=== PATIENT | female | born 1990 | race African-American/Black ===

== ENCOUNTER 2018-06-05 13:42 | Emergency (ER) | payer SELFPAY ==
--- NOTE | 2018-06-05 14:37 | ER Document Report ---
ED ENT - General Chief Complaint: Chest Congestion Stated Complaint: CONGESTION Time Seen by Provider: 06/05/18 14:05 Mode of Arrival: Ambulatory Information source: Patient Notes: 28-year-old female presented to ED with cough cold congestion runny nose sore throat losing her voice. Patient is alert oriented respirations regular and unlabored speaking air muffled voice. States she has been sick for 2 days but no fevers. TRAVEL OUTSIDE OF THE [place] IN LAST 30 DAYS: No - HPI Patient complains to provider of: Nose problem, Throat problem Onset/Duration: Intermittent Quality of pain: Sharp Severity: Moderate Pain Level: 3 Context: Recent Illness Location of pain: Nose, Sinus, Throat Associated symptoms: Congestion, Cough, Runny nose, Sinus drainage, Sore throat Similar symptoms previously: Yes Recently seen / treated by doctor: Yes - Related Data Allergies/Adverse Reactions: No Known Allergies Allergy (Verified 06/05/18 13:42) Past Medical History - General Information source: Patient - Social History Smoking Status: Current Every Day Smoker Cigarette use (# per day): Yes - 3-4 times a day Chew tobacco use (# tins/day): No Smoking Education Provided: Yes - 4 minutes Frequency of alcohol use: Rare - 3-4 months Drug Abuse: None Occupation: [employer] Lives with: Family Family History: Reviewed & Not Pertinent Patient has suicidal ideation: No Patient has homicidal ideation: No - Past Medical History Cardiac Medical History: Reports: None Pulmonary Medical History: Reports: None EENT Medical History: Reports: None Neurological Medical History: Reports: None Endocrine Medical History: Reports: Hx Hyperthyroidism Renal/ Medical History: Reports: None Malignancy Medical History: Reports: None GI Medical History: Reports: None Musculoskeletal Medical History: Reports None Skin Medical History: Reports None Psychiatric Medical History: Reports: None Traumatic Medical History: Reports: None Infectious Medical History: Reports: None Surgical Hx: Negative Past Surgical History: Reports: None - Immunizations Immunizations up to date: Yes Hx Diphtheria, Pertussis, Tetanus Vaccination: Yes Review of Systems - Review of Systems Constitutional: Recent illness EENT: Sinus pressure, Sinus discharge, Throat pain Cardiovascular: No symptoms reported Respiratory: Cough Gastrointestinal: No symptoms reported Genitourinary: No symptoms reported Female Genitourinary: No symptoms reported Musculoskeletal: No symptoms reported Skin: No symptoms reported Hematologic/Lymphatic: No symptoms reported Neurological/Psychological: No symptoms reported -: Yes All other systems reviewed and negative Physical Exam - Vital signs Vitals: Temp Pulse Resp BP Pulse Ox 99.1 F 106 H 18 180/74 H 99 06/05/18 13:45 06/05/18 13:45 06/05/18 13:45 06/05/18 13:45 06/05/18 13:45 Interpretation: Normal - General General appearance: Appears well, Alert - HEENT Head: Normocephalic, Atraumatic Eyes: Normal Pupils: PERRL Ears: Normal External canal: Normal Tympanic membrane: Normal Sinus: Swelling, Tenderness Nasal: Purulent discharge, Swelling Pharynx: Erythema, Post nasal drainage, Tonsillar hypertrophy Neck: Normal - Respiratory Respiratory status: No respiratory distress Chest status: Nontender Breath sounds: Decreased air movement Chest palpation: Normal - Cardiovascular Rhythm: Regular Heart sounds: Normal auscultation Murmur: No - Abdominal Inspection: Normal Distension: No distension Bowel sounds: Normal Tenderness: Nontender Organomegaly: No organomegaly - Back Back: Normal, Nontender - Extremities General upper extremity: Normal inspection, Nontender, Normal color, Normal ROM, Normal temperature General lower extremity: Normal inspection, Nontender, Normal color, Normal ROM, Normal temperature, Normal weight bearing. No: Joel's sign - Neurological Neuro grossly intact: Yes Cognition: Normal Orientation: AAOx4 Eunice Coma Scale Eye Opening: Spontaneous Eunice Coma Scale Verbal: Oriented [place] Coma Scale Motor: Obeys Commands Boston Coma Scale Total: 15 Speech: Normal Motor strength normal: LUE, RUE, LLE, RLE Sensory: Normal - Psychological Associated symptoms: Normal affect, Normal mood - Skin Skin Temperature: Warm Skin Moisture: Dry Skin Color: Normal Course - Re-evaluation Re-evalutation: 06/05/18 21:39 After performing a Medical Screening Examination, I estimate there is LOW risk for ACUTE CORONARY SYNDROME, RESPIRATORY FAILURE, SEPSIS OR MENINGITIS, thus I consider the discharge disposition reasonable. I have reevaluated this patient multiple times and no significant life threatening changes are noted. The patient and I have discussed the diagnosis and risks, and we agree with discharging home with close follow-up. We also discussed returning to the Emergency Department immediately if new or worsening symptoms occur. We have dis cussed the symptoms which are most concerning (e.g., changing or worsening pain, trouble swallowing or breathing, neck stiffness, fever) that necessitate immediate return. - Vital Signs Vital signs: Temp Pulse Resp BP Pulse Ox 98.4 F 93 18 130/77 H 99 06/05/18 15:22 06/05/18 15:22 06/05/18 15:22 06/05/18 15:22 06/05/18 15:22 Discharge - Discharge Clinical Impression: Viral sore throat, Laryngitis URI (upper respiratory infection) Qualifiers: URI type: unspecified viral URI Qualified Code(s): J06.9 - Acute upper respiratory infection, unspecified Condition: Stable Disposition: HOME, SELF-CARE Instructions: Family Physicians / Practices Additional Instructions: Laryngitis You have laryngitis. This is an inflammation of the vocal cords which leads to inability to speak normally. Any irritation to the airway can cause laryngitis. Causes include virus infection, smoke inhalation, allergy, or even trauma due to excessive talking or shouting. Rest your voice. Any vibration of the vocal cords increases and prolongs the swelling. Humidity is helpful, especially cool mist. Avoid dust, chemical fumes, and smoke. Avoid decongestants and antihistamines -- these will make you worse. You can expect to recover completely in a few days. See the physician if new symptoms develop, such as high fever, productive cough, shortness of breath, or if you do not improve within a few days. SORE THROAT: Sore throats may be caused by viruses, bacteria, or fungi. Most are due to a virus, and must get better on their own. Bacterial sore throats, particularly those due to "strep," need treatment with antibiotics. If an antibiotic is prescribed, be sure to take the medication for a full 10 days. Failure to take the antibiotic can result in complications such as rheumatic fever. Sometimes, an injection of antibiotics is given instead of p ills or liquid. This single "shot" is equal in effectiveness to the oral medication. To relieve symptoms, take acetaminophen for pain. Sip clear liquids frequently, or eat popsicles or ice chips. Anesthetic sprays or lozenges may help. Make sure the air in the room is not too dry. Avoid using decongestants or antihistamines. Call the doctor if there is no improvement in two days, or if you have difficulty breathing, increasing throat pain, high fever, rash, or frequent vomiting. UPPER RESPIRATORY ILLNESS: You have a viral infection of the respiratory passages -- a "cold." This common infection causes nasal congestion, drainage, and often sore throat and cough. It is highly contagious. The disease usually lasts about 10 to 14 days. There is no "cure" for the viral infection -- it must run its course. If there is a complication, such as bacterial infection in the nose, sinuses, middle ear, or bronchial tubes, antibiotics may be required. The antibiotics won't affect the virus. Drink plenty of fluids. A humidifier may help. An expectorant medication or decongestant may make you more comfortable. Use acetaminophen or ibuprofen for fever or aches. See the doctor if fever persists over two days, if there is any significant worsening of your symptoms, or if you simply fail to improve as expected. DECONGESTANT MEDICATION: A decongestant medicine has been prescribed. Often this medicine is combined in the same tablet with an antihistamine or expectorant. This type of medicine is helpful in treating a bad cold or sinus condition, as well as in treatment of the nasal congestion of hay fever. It is not of much benefit for lung infections. Decongestant medicines are related to stimulants. They can cause an increase in blood pressure and heart rate. Persons with heart disease and high blood pressure should not take decongestants without discussing this with the physician. If you develop palpitations, chest pain, headache, or tremors, stop the medicine and consult your physician. COUGH-SUPPRESSANT & EXPECTORANT MEDICATION: You are to use a cough medication as needed for relief of symptoms. This medicine is a combination of an expectorant (to make the mucous thinner and more easily "coughed up") and a cough suppressant (to reduce the frequency of coughing). The cough-suppressant medicine is related to narcotics. You may experience mild nausea and sleepiness. Some patients who are very sensitive to narcotics may have stomach pain from this medicine. Taking the medicine with food reduces these side effects. Do not drive or work with machinery until you know how this medicine affects you. The expectorant should have no side effects. Iodine-containing expectorants (such as organidin) should not be taken by persons with active thyroid disease unless approved by your doctor. Call the doctor if you develop shortness of breath, hives, rash, itching, lightheadedness, or severe nausea and vomiting. USE OF ACETAMINOPHEN (Tylenol): Acetaminophen may be taken for pain relief or fever control. It's much safer than aspirin, offering a wider range of "safe" dosages. It is safe during . Some brand names are Tylenol, Panadol, Datril, Anacin 3, Tempra, and Liquiprin. Acetaminophen can be repeated every four hours. The following are maximum recommended dosages: >89 pounds or adults 650 mg to 900 mg Acetaminophen can be repeated every four hours. Maximum dose not to exceed 4000 mg a day. SMOKING: If you smoke, you should stop smoking. The tar and chemicals in cigarette smoke are harmful. Smoking has been shown to cause: emphysema chronic bronchitis lung cancer mouth and throat cancer stomach and pancreas cancer premature aging defects In addition, smoking increases ear and lung infections in children of smokers. FOLLOW-UP CARE: If you have been referred to a physician for follow-up care, call the physicians office for an appointment as you were instructed or within the next two days. If you experience worsening or a significant change in your symptoms, notify the physician immediately or return to the Emergency Department at any time for re-evaluation. Forms: Elevated Blood Pressure, Smoking Cessation Education, Return to Work
[2018-06-05] MEDS ORDERED: IBUPROFEN 600 MG TABLET PO ONE (15:22)
[2018-06-05] MEDS ORDERED: LORATADINE 10 MG TABLET PO ONE (15:22)
[2018-06-05 15:24] VITALS: BP 130/77
== END 2018-06-05 15:28 | disposition home or self-care (01) ==
LOC: ER 13:42
DX: J02.8 Acute pharyngitis due to other specified organisms (principal); B97.89 Other viral agents as the cause of diseases classified elsewhere; J04.0 Acute laryngitis; R05 Cough; J35.1 Hypertrophy of tonsils; R09.82 Postnasal drip; R09.89 Other specified symptoms and signs involving the circulatory and respiratory systems; J34.89 Other specified disorders of nose and nasal sinuses; F17.210 Nicotine dependence, cigarettes, uncomplicated; Z71.6 Tobacco abuse counseling
CPT/HCPCS: 87070; 87077; 87880; 99283

== ENCOUNTER 2018-06-17 16:57 | Emergency (ER) | payer SELFPAY ==
[2018-06-17] MEDS ORDERED: IPRATROPIUM/ALBUTEROL 0.5-2.5 MG/3 ML AMPUL NEB ONE (19:48)
--- NOTE | 2018-06-17 20:33 | ER Document Report ---
HPI - HPI Time Seen by Provider: 06/17/18 18:55 Pain Level: 5 Notes: Patient is a 28-year-old female who presents the emergency department chief complaint of fever, congestion, body aches and cough that is been ongoing for 2 weeks. Patient reports she is taking [id number] medications with no help. Patient reports she was seen here and discharged with a diagnosis of a viral upper respiratory illness. Patient reports she continues to have worsening symptoms, states that earlier today she had a fever of 101. Patient also reports history of hyperthyroidism, states she has been out of her medications for approximately 1 month. - EENT EENT: REPORTS: Sore Throat - RESPIRATORY Respiratory: REPORTS: Coughing - REPRODUCTIVE Reproductive: DENIES: : Past Medical History - General Information source: Patient - Social History Smoking Status: Never Smoker Frequency of alcohol use: None Drug Abuse: None Family History: Reviewed & Not Pertinent Patient has suicidal ideation: No Patient has homicidal ideation: No - Past Medical History Cardiac Medical History: Reports: Hx Hypertension Endocrine Medical History: Reports: Hx Hyperthyroidism Renal/ Medical History: Denies: Hx Peritoneal Dialysis Surgical Hx: Negative - Immunizations Immunizations up to date: Yes Hx Diphtheria, Pertussis, Tetanus Vaccination: Yes Vertical Provider Document - CONSTITUTIONAL Notes: PHYSICAL EXAMINATION: GENERAL: Well-nourished and in no acute distress. HEAD: Atraumatic, normocephalic. EYES: Pupils equal round and reactive to light, extraocular movements intact, conjunctiva are normal. ENT: Nares patent, oropharynx clear without exudates. Moist mucous membranes. NECK: Normal range of motion, supple without lymphadenopathy LUNGS: Breath sounds clear to auscultation bilaterally and equal. Mild expiratory wheezes noted bilaterally HEART: Regular rate and rhythm without murmurs ABDOMEN: Soft, nontender, nondistended abdomen. No guarding, no rebound. No masses appreciated. Female : No CVA tenderness. Musculoskeletal: Normal range of motion, no pitting or edema. No cyanosis. NEUROLOGICAL: Cranial nerves grossly intact. Normal speech, normal gait. Normal sensory, motor exams PSYCH: Normal mood, normal affect. SKIN: Warm, Dry, normal turgor, no rashes or lesions noted. - INFECTION CONTROL TRAVEL OUTSIDE OF THE [place] IN LAST 30 DAYS: No Course - Re-evaluation Re-evalutation: 06/17/18 21:24 Rapid strep and influenza are both negative. Chest x-ray was obtained and is also negative for any acute findings to include infiltrates. Patient has been sick for greater than 2 weeks with symptoms of bronchitis. Patient will be started on penicillin and prednisone. Patient's hyperthyroid medications also refilled as patient does not have a primary care doctor and just moved here. Patient encouraged to get a primary care provider, a list was provided to her. Patient's vital signs were stable at time of discharge. Of note patient was initially tachycardic. Patient reports that her heart rate always runs high due to her hyperthyroidism. Patient reports her baseline heart rate is usually 110. - Vital Signs Vital signs: Temp Pulse Resp BP Pulse Ox 99.9 F 105 H 18 153/97 H 97 06/17/18 19:46 06/17/18 19:46 06/17/18 19:46 06/17/18 17:15 06/17/18 19:46 Discharge - Discharge Clinical Impression: Bronchitis Condition: Stable Disposition: HOME, SELF-CARE Additional Instructions: BRONCHITIS WITH BRONCHOSPASM (WHEEZING): You have bronchitis with bronchospasm (wheezing). Sometimes people develop wheezing with a chest cold. This occurs either because of an underlying tendency toward asthma or because the virus itself irritates the bronchial tubes. This irritation causes cough, shortness of breath, and wheezing. Emergency treatment of bronchospasm may include adrenaline shots or bronchodilator aerosol. You may feel lightheaded and have a rapid pulse for an hour or two. Rest and get plenty of fluids. At home, we'll treat you with a bronchodilator inhaler. Corticosteroids may be required for some patients. Until you recover, avoid chemical fumes, dusts, pollens, and exercising in very cold or dry air. If you smoke, stop now! Most cases of bronchitis get better without antibiotics. We prescribe antibiotics when we believe bacteria are damaging your airways, or if there's high risk the bronchitis will worsen into pneumonia. Increase your fluid intake. A cool mist humidifier may make your lungs more comfortable. An expectorant (cough medicine that loosens phlegm) can help. Repeated episodes of bronchitis and bronchospasm may result in lung damage -- for example, chronic bronchitis, recurrent pneumonias, or emphysema. If you develop a fever, increased wheezing, chest pain, or severe shortness of breath, you should contact the doctor immediately. INHALED BRONCHODILATORS: You have received a treatment of and/or prescription for an inhaled bronchodilator -- a medication which stimulates the airways in the lung to dilate. This improves the flow of air in asthma, bronchitis, and emphysema. These medicines have some similarity to adrenaline, and can cause similar side effects: shakiness, racing heart, and a sense of nervousness. These side effects decrease with time. Contact your doctor if these side effects are severe. Do not over-use the medicine. Too-frequent use of the inhaler may make it ineffective. Call your doctor if the inhaler is not controlling your symptoms at the prescribed doses. STEROID MEDICATION: You have been given an injection of or oral medicine of the cortisone/steroid class. This medication is used to control inflammation or allergy. Wally t is usually only given for a short period of time, until the acute process subsides. There are usually no side effects from short-term use of cortisone-like medications. Some persons feel an increased sense of well-being and are not sleepy at bedtime. Long-term use of cortisone medications is best avoided, unless required for a severe condition. If your condition does not remit, or relapses after the course of corticosteroid medication, you should consult your physician. ANTIBIOTIC THERAPY: You have been given an antibiotic prescription. It's important that you take all the medication, unless instructed otherwise by your physician. Failure to complete the entire course can result in relapse of your condition. Common side effects of antibiotics include nausea, intestinal cramping, or diarrhea. Women may develop vaginal yeast infections, and babies can get yeast (thrush) in the mouth following the use of antibiotics. Contact your physician if you develop significant side effects from this medication. Allergy to this antibiotic can result in hives, wheezing, faintness, or itching. If symptoms of allergy occur, stop the medication and call your doctor. AMOXICILLIN: Amoxicillin is a member of the penicillin family. It covers the germs likely to cause ear, bronchial, and urinary infections better than plain penicillin. Amoxicillin can be taken without regard to meals. Nausea after taking the medication is rare, but can occur. Diarrhea can occur, particularly in small children. Vaginal yeast infections and oral thrush in infants are also common. Contact your physician if these problems occur. Allergy to penicillins is common. If you have had an allergic reaction to any drug of the penicillin family, you should never take any other penicillin. Notify your doctor at once if you develop hives, itching, swelling, faintness, or shortness of breath. Less serious side effects can include nausea or diarrhea. USE OF ACETAMINOPHEN (Tylenol): Acetaminophen may be taken for pain relief or fever control. It's much safer than aspirin, offering a wider range of "safe" dosages. It is safe during . Some brand names are Tylenol, Panadol, Datril, Anacin 3, Tempra, and Liquiprin. Acetaminophen can be repeated every four hours. The following are maximum recommended dosages: >89 pounds or adults 650 mg to 900 mg Acetaminophen can be repeated every four hours. Maximum dose not to exceed 4000 mg a day. SMOKING: If you smoke, you should stop smoking. The tar and chemicals in cigarette smoke are harmful. Smoking has been shown to cause: emphysema chronic bronchitis lung cancer mouth and throat cancer stomach and pancreas cancer premature aging defects In addition, smoking increases ear and lung infections in children of smokers. FOLLOW-UP CARE: If you have been referred to a physician for follow-up care, call the physicians office for an appointment as you were instructed or within the next two days. If you experience worsening or a significant change in your symptoms, notify the physician immediately or return to the Emergency Department at any time for re-evaluation. The rapid strep test, influenza testing and chest x-ray were all normal today. Please take medications as prescribed. Use the albuterol inhaler, you may use 2 puffs every 4 hours as needed for any shortness of breath or wheezing. Take all other medications as prescribed. Push fluids. Take Tylenol or ibuprofen for any fever or body aches. You were given a first dose of all medications tonight so that you do not have to go to the pharmacy tonight. Please follow-up with your primary care provider, a list has been provided to you. Prescriptions: Amoxicillin 1 tab PO TID #21 tab Atenolol [Tenormin] 25 mg PO BID 30 Days #60 tablet Methimazole 10 mg PO TID 30 Days #90 tablet Prednisone [Deltasone 20 mg Tablet] 3 tab PO DAILY 5 Days #15 tablet Forms: Return to Work Referrals: SANDIE ROTH MD [Primary Care Provider] - Follow up as needed JANET DIAZ MD [ACTIVE STAFF] - Follow up as needed KEARA ALLEN MD [COMMUNITY BASED STAFF] - Follow up as needed
[2018-06-17 20:40] LABS: A TYPE INFLUENZA AG NEGATIVE (NEGATIVE); B INFLUENZA AG NEGATIVE (NEGATIVE)
--- NOTE | 2018-06-17 20:59 | RADIOLOGY REPORT (SQ) ---
XR CHEST 2 VIEWS HISTORY: Cough and fever. COMPARISON: None. FINDINGS: The heart size is normal. No consolidation, pleural effusion, or pneumothorax is seen. There are no acute bony findings. IMPRESSION: No evidence of acute cardiopulmonary disease.
[2018-06-17] MEDS ORDERED: ALBUTEROL SULFATE HFA (90 MCG/PUFF) 8 GM MDI (1 MDI/ER DISP) IH ONE (21:06)
[2018-06-17] MEDS ORDERED: PREDNISONE 20 MG TABLET PO ONE (21:06)
[2018-06-17] MEDS ORDERED: AMOXICILLIN TRIHYDRATE 500 MG CAPSULE PO ONE ×2 (21:09→21:24)
[2018-06-17] MEDS ORDERED: IBUPROFEN 600 MG TABLET PO ONE (21:20)
[2018-06-17] MEDS ORDERED: ACETAMINOPHEN 325 MG TABLET PO ONE (21:21)
[2018-06-17] MEDS ORDERED: PENICILLIN V POTASSIUM 500 MG TABLET PO ONE (21:23)
[2018-06-17 21:32] VITALS: BP 139/87
== END 2018-06-17 21:30 | disposition home or self-care (01) ==
LOC: ER 16:57
DX: J40 Bronchitis, not specified as acute or chronic (principal); R50.9 Fever, unspecified; R09.81 Nasal congestion; M79.10 Myalgia, unspecified site; R05 Cough; I10 Essential (primary) hypertension
CPT/HCPCS: 99283; 87070; 87880; 87077; 87804; 71046; J7512; J3490; J7620

== ENCOUNTER 2018-10-26 20:24 | Emergency (ER) | payer MEDICAID ==
[2018-10-26] MEDS ORDERED: ACETAMINOPHEN 325 MG TABLET PO ONE (20:46)
--- NOTE | 2018-10-26 21:51 | RADIOLOGY REPORT (SQ) ---
EXAM DESCRIPTION: XR CHEST 2 VIEWS COMPLETED DATE/TME: 10/26/2018 20:46 CLINICAL HISTORY: 28 years Female cough COMPARISON: 06/17/2018. FINDINGS: The cardiomediastinal silhouette appears unremarkable. No consolidating infiltrates or pleural effusions. No pneumothorax. IMPRESSION: No acute abnormality is identified.
[2018-10-26] MEDS ORDERED: NORMAL SALINE 1000 ML 1,000 ML IV ONE (22:11)
[2018-10-26] MEDS ORDERED: KETOROLAC TROMETHAMINE INJ/PF 30 MG/1 ML SDV IV ONE (22:11)
--- NOTE | 2018-10-26 22:12 | ER Document Report ---
Addendum entered and electronically signed by SADNOR THORNE NP 10/28/18 17:49: Course - Re-evaluation Re-evalutation: 10/28/18 17:49 [facility] pharmacy called to confirm dosage instructions for the a azithromycin prescription. Pharmacy advised that patient can take 1 tab daily x4 days. - Vital Signs Vital signs: Temp Pulse Resp BP Pulse Ox 98.7 F 114 H 18 156/83 H 100 10/27/18 00:05 10/27/18 00:05 10/27/18 00:05 10/27/18 00:05 10/27/18 00:05 - Laboratory Result Diagrams: 10/26/18 22:37 10/26/18 22:37 Laboratory results interpreted by me: 10/26/18 10/26/18 22:37 22:37 Hgb 11.7 L Hct 35.2 L MCV 79 L MCH 26.3 L RDW 14.9 H Creatinine 0.51 L Glucose 111 H Original Note: ED General - General Chief Complaint: Cough Stated Complaint: CONGESTION Time Seen by Provider: 10/26/18 21:55 Notes: Patient is a 28-year-old female that comes emergency department for chief complaint of cough, coughing up greenish sputum for the past 3 days, today she developed fevers, she also has a sore throat. She coughed until she vomited earlier today. She does smoke. She denies any daily medications, she is diagnosed with hyperthyroidism but does not take the prescriptions for it. LMP within the past 3 days. Denies any obvious sick contacts or past medical histor y otherwise. TRAVEL OUTSIDE OF THE [place] IN LAST 30 DAYS: No - Related Data Allergies/Adverse Reactions: No Known Allergies Allergy (Verified 10/26/18 20:28) Past Medical History - General Information source: Patient - Social History Smoking Status: Never Smoker Frequency of alcohol use: None Drug Abuse: None Lives with: Family Family History: Reviewed & Not Pertinent Patient has suicidal ideation: No Patient has homicidal ideation: No - Past Medical History Cardiac Medical History: Reports: Hx Hypertension Endocrine Medical History: Reports: Hx Hyperthyroidism Renal/ Medical History: Denies: Hx Peritoneal Dialysis - Immunizations Immunizations up to date: Yes Hx Diphtheria, Pertussis, Tetanus Vaccination: Yes Review of Systems - Review of Systems Constitutional: See HPI EENT: See HPI Cardiovascular: No symptoms reported Respiratory: See HPI Gastrointestinal: No symptoms reported Genitourinary: No symptoms reported Female Genitourinary: No symptoms reported Musculoskeletal: No symptoms reported Skin: No symptoms reported Hematologic/Lymphatic: No symptoms reported Neurological/Psychological: No symptoms reported Physical Exam - Vital signs Vitals: Temp Pulse Resp BP Pulse Ox 100.0 F 127 H 16 159/89 H 98 10/26/18 20:34 10/26/18 20:34 10/26/18 20:34 10/26/18 20:34 10/26/18 20:34 - Notes Notes: GENERAL: Alert, interacts well. No acute distress. HEAD: Normocephalic, atraumatic. EYES: Pupils equal, round, and reactive to light. Extraocular movements intact. ENT: Oral mucosa moist, tongue midline. Oropharynx with erythema and tonsillar swelling but no exudates, normal uvula, airway patent. Nares patent, no nasal septal hematoma, TM's intact. NECK: Full range of motion. Supple. Trachea midline. Bilateral mild lymphadenopathy anteriorly. LUNGS: Clear to auscultation bilaterally, no wheezes, rales, or rhonchi. Occasional congested cough. HEART: Borderline tachycardia, normal rhythm. No murmur ABDOMEN: Soft, non-tender. Non-distended. Bowel sounds present in all 4 quadrants. GENITOURINARY: Deferred EXTREMITIES: Moves all 4 extremities spontaneously. No edema, normal radial and dorsalis pedis pulses bilaterally. No cyanosis. BACK: no cervical, thoracic, lumbar midline tenderness. No saddle anesthesia, normal distal neurovascular exam. Moves all extremities in full range of motion. NEUROLOGICAL: Alert and oriented x3. Normal speech. Cranial nerves II through XII grossly intact. PSYCH: Normal affect, normal mood. SKIN: Warm, dry, normal turgor. No rashes or lesions noted. Course - Re-evaluation Re-evalutation: On examination patient has erythema of the tonsils with tonsillitis and anterior cervical adenopathy. Strep is negative. Patient also has frequent cough, reported to be productive with green sputum, she is also running fevers today after several days of symptoms. Concern for underlying developing pneumonia. Chest x-rays are unremarkable however, CBC and chemistry are nonspecific. Discussed with patient. Discussed different options. We treated her with dexamethasone for her tonsillitis and lymphadenopathy, she was provided with azithromycin because of worsening symptoms with development of fever and still the possibility of an underlying pneumonia. Patient is still tachycardic on reevaluation. However patient admits to me that this is actually a normal heart rate for her and she is supposed to be on medications for hyperthyroidism but she does not like taking these. I did recommend that she resume her prescribed medications. I discussed follow-up and return precautions in detail. Patient states understanding and agreement. Stable time of discharge. - Vital Signs Vital signs: Temp Pulse Resp BP Pulse Ox 98.7 F 114 H 18 156/83 H 100 10/27/18 00:05 10/27/18 00:05 10/27/18 00:05 10/27/18 00:05 10/27/18 00:05 - Laboratory Result Diagrams: 10/26/18 22:37 10/26/18 22:37 Laboratory results interpreted by me: 10/26/18 10/26/18 22:37 22:37 Hgb 11.7 L Hct 35.2 L MCV 79 L MCH 26.3 L RDW 14.9 H Creatinine 0.51 L Glucose 111 H Discharge - Discharge Clinical Impression: Productive cough Fever Qualifiers: Fever type: unspecified Qualified Code(s): R50.9 - Fever, unspecified Pharyngitis Qualifiers: Pharyngitis/tonsillitis etiology: unspecified etiology Qualified Code(s): J02.9 - Acute pharyngitis, unspecified Condition: Stable Disposition: HOME, SELF-CARE Additional Instructions: Your work-up does not show any concerning findings (chest x-ray is clear, strep is negative, labs do not show concerning findings). Your symptoms and examination are most consistent with a viral upper respiratory tract, however because of your developing cough and fevers I am concerned there is an underlying early pneumonia. We are covering you for this. You have been treated with Decadron to help with your throat swelling and general symptoms. Take ibuprofen or Tylenol, drink plenty fluids, rest, complete the antibiotic. Follow-up primary care. Return if you worsen including difficulty breathing, spiking fevers, or any other concerning or worsening symptoms. Prescriptions: Benzonatate [Tessalon Perle 100 mg Capsule] 100 mg PO Q8HP PRN #20 cap PRN Reason: Azithromycin [Zithromax 250 mg Tablet] 250 mg PO ASDIR PRN #4 tablet PRN Reason: Forms: Return to Work
[2018-10-26 22:49] LABS: ABSOLUTE BASOPHILS # (AUTO) 0.1 10^3/uL (0.0-0.2); ABSOLUTE EOSINOPHILS # (AUTO) 0.1 10^3/uL (0.0-0.6); ABSOLUTE LYMPHOCYTES (AUTO) 1.4 10^3/uL (0.5-4.7); ABSOLUTE MONOCYTES (AUTO) 0.4 10^3/uL (0.1-1.4); ABSOLUTE NEUT (AUTO) 4.2 10^3/uL (1.7-8.2); BASOPHILS % (AUTO) 0.8 % (0-2); EOSINOPHILS % (AUTO) 2.2 % (0-6); HEMATOCRIT 35.2 % (36.0-47.0); HEMOGLOBIN 11.7 g/dL (12.0-15.5); LYMPHOCYTES % (AUTO) 22.4 % (13-45); MEAN CORPUSCULAR HEMOGLOBIN 26.3 pg (27.0-33.4); MEAN CORPUSCULAR HGB CONC 33.2 g/dL (32.0-36.0); MEAN CORPUSCULAR VOLUME 79 fl (80-97); MONOCYTES % (AUTO) 6.5 % (3-13); PLATELET COUNT 197 10^3/uL (150-450); RED BLOOD COUNT 4.43 10^6/uL (3.72-5.28); RED CELL DISTRIBUTION WIDTH 14.9 % (11.5-14.0); SEGMENTED NEUTROPHILS % (AUTO) 68.1 % (42-78); TOTAL CELLS COUNTED % (AUTO) 100 %; WHITE BLOOD COUNT 6.2 10^3/uL (4.0-10.5)
[2018-10-26 23:24] LABS: ALBUMIN 4.1 g/dL (3.5-5.0); ALKALINE PHOSPHATASE 95 U/L (38-126); ANION GAP 7 (5-19); ASPARTATE AMINO TRANSFERASE 21 U/L (14-36); BILIRUBIN,DIRECT 0.2 mg/dL (0.0-0.4); BILIRUBIN,TOTAL 0.3 mg/dL (0.2-1.3); BLOOD UREA NITROGEN 8 mg/dL (7-20); CALCIUM 9.1 mg/dL (8.4-10.2); CARBON DIOXIDE 25 mmol/L (22-30); CHLORIDE 105 mmol/L (98-107); GLUCOSE 111 mg/dL (75-110); POTASSIUM 4.2 mmol/L (3.6-5.0); TOTAL PROTEIN 8.1 g/dL (6.3-8.2)
[2018-10-26] MEDS ORDERED: DEXAMETHASONE SOD PHOS INJ 10 MG/1 ML VIAL IV ONE (23:52)
[2018-10-26] MEDS ORDERED: AZITHROMYCIN 250 MG TABLET PO ONE (23:52)
[2018-10-27 00:11] VITALS: BP 156/83
--- NOTE | 2018-10-27 07:34 | EKG REPORT ---
SEVERITY:- OTHERWISE NORMAL ECG - SINUS TACHYCARDIA : Confirmed by: Andi Blanco MD 27-Oct-2018 07:34:19
== END 2018-10-27 00:19 | disposition home or self-care (01) ==
LOC: ER 20:24
DX: J03.90 Acute tonsillitis, unspecified (principal); R05 Cough; R50.9 Fever, unspecified; I10 Essential (primary) hypertension; R59.0 Localized enlarged lymph nodes; R00.0 Tachycardia, unspecified; E05.90 Thyrotoxicosis, unspecified without thyrotoxic crisis or storm; T50.906A Underdosing of unspecified drugs, medicaments and biological substances, initial encounter; Z91.128 Patient's intentional underdosing of medication regimen for other reason; Z91.14 Patient's other noncompliance with medication regimen
CPT/HCPCS: 93005; 99284; 96361; 96374; 36415; 87070; 87880; 84703; 85025; 87077; 80053; 71046; 93010; J3490; Q0144; J7030; J1100

== ENCOUNTER 2019-02-15 18:05 | Emergency (ER) | payer SELFPAY ==
--- NOTE | 2019-02-15 18:23 | ER Document Report ---
ED Medical Screen (RME) - General Chief Complaint: Chest Pain Stated Complaint: CHEST PAIN Time Seen by Provider: 02/15/19 18:16 Mode of Arrival: Ambulatory Information source: Patient Notes: 28-year-old female presented to ED for complaint of substernal mid chest pain for the last 3 days. She states she has had cough cold congestion shortness of breath for the last 3 days. Patient has a history of hyperthyroid and her blood pressure. She states she smokes about 3 cigarettes a day. She states she does not have a primary care doctor and nobody is following up on her thyroid medicine. She states she did get a prescription from the emergency room. This menstrual period was about a month ago. Lungs are clear to auscultation pulse is very tachycardic. I have greeted and performed a rapid initial assessment of this patient. A comprehensive ED assessment and evaluation of the patient, analysis of test results and completion of medical decision making process will be conducted by an additional ED providers. TRAVEL OUTSIDE OF THE [place] IN LAST 30 DAYS: No - Related Data Allergies/Adverse Reactions: No Known Allergies Allergy (Verified 10/26/18 20:28) Past Medical History - Past Medical History Cardiac Medical History: Reports: Hx Hypertension Endocrine Medical History: Reports: Hx Hyperthyroidism Renal/ Medical History: Denies: Hx Peritoneal Dialysis - Immunizations Immunizations up to date: Yes Hx Diphtheria, Pertussis, Tetanus Vaccination: Yes
[2019-02-15] MEDS ORDERED: ACETAMINOPHEN 325 MG TABLET PO ONE (18:25)
[2019-02-15] MEDS ORDERED: ASPIRIN 81 MG TABLET, CHEWABLE PO ONE (18:25)
[2019-02-15] MEDS ORDERED: NORMAL SALINE 1000 ML 1,000 ML IV ONE (18:26)
--- NOTE | 2019-02-15 18:26 | EKG REPORT ---
SEVERITY:- BORDERLINE ECG - SINUS TACHYCARDIA BORDERLINE Q WAVES IN INFERIOR LEADS INFERIOR Q WAVES, PROBABLY NORMAL VARIATION : Confirmed by: Veronica Hendricks 15-Feb-2019 18:26:11
--- NOTE | 2019-02-15 18:59 | RADIOLOGY REPORT (SQ) ---
EXAM DESCRIPTION: CHEST 2 VIEWS COMPLETED DATE/TIME: 02/15/2019 6:35 pm REASON FOR STUDY: chest pain cough COMPARISON: 10/26/2018 EXAM PARAMETERS: NUMBER OF VIEWS: two views TECHNIQUE: Digital Frontal and Lateral radiographic views of the chest acquired. RADIATION DOSE: NA LIMITATIONS: none FINDINGS: LUNGS AND PLEURA: No opacities, masses or pneumothorax. No pleural effusion. MEDIASTINUM AND HILAR STRUCTURES: No masses or contour abnormalities. HEART AND VASCULAR STRUCTURES: Heart normal size. No evidence for failure. BONES: No acute findings. HARDWARE: None in the chest. OTHER: No other significant finding. IMPRESSION: NO ACUTE RADIOGRAPHIC FINDING IN THE CHEST. TECHNICAL DOCUMENTATION: JOB ID: [id number] [employer]- All Rights Reserved Reading location - IP/workstation name: [email or web address]
[2019-02-15 19:18] LABS: ABSOLUTE EOSINOPHILS # (AUTO) 0.3 10^3/uL (0.0-0.6); ABSOLUTE LYMPHOCYTES (AUTO) 2.3 10^3/uL (0.5-4.7); ABSOLUTE MONOCYTES (AUTO) 0.5 10^3/uL (0.1-1.4); BASOPHILS % (AUTO) 0.7 % (0-2); EOSINOPHILS % (AUTO) 3.6 % (0-6); HEMOGLOBIN 12.6 g/dL (12.0-15.5); LYMPHOCYTES % (AUTO) 32.2 % (13-45); MEAN CORPUSCULAR HEMOGLOBIN 26.1 pg (27.0-33.4); MEAN CORPUSCULAR VOLUME 79 fl (80-97); MONOCYTES % (AUTO) 6.5 % (3-13); PLATELET COUNT 201 10^3/uL (150-450); RED BLOOD COUNT 4.82 10^6/uL (3.72-5.28); RED CELL DISTRIBUTION WIDTH 14.9 % (11.5-14.0); TOTAL CELLS COUNTED % (AUTO) 100 %; WHITE BLOOD COUNT 7.1 10^3/uL (4.0-10.5)
[2019-02-15 19:38] LABS: ALBUMIN 3.9 g/dL (3.5-5.0); ALKALINE PHOSPHATASE 106 U/L (38-126); ANION GAP 8 (5-19); ASPARTATE AMINO TRANSFERASE 19 U/L (14-36); BILIRUBIN,DIRECT 0.1 mg/dL (0.0-0.4); BILIRUBIN,TOTAL 0.2 mg/dL (0.2-1.3); BLOOD UREA NITROGEN 7 mg/dL (7-20); CALCIUM 9.4 mg/dL (8.4-10.2); CARBON DIOXIDE 24 mmol/L (22-30); CHLORIDE 107 mmol/L (98-107); GLUCOSE 123 mg/dL (75-110)
[2019-02-15 19:55] LABS: FREE T3 10.5 pg/mL (2.77-5.27); FREE T4 (FREE THYROXINE) 3.35 ng/dL (0.78-2.19)
[2019-02-15 20:09] LABS: THYROID STIMULATING HORMONE 0.02 uIU/mL (0.47-4.68)
[2019-02-15 20:46] LABS: APPEARANCE,URINE SLIGHTLY-CLOUDY; BILIRUBIN,URINE NEGATIVE (NEGATIVE); COLOR,URINE YELLOW; GLUCOSE, URINE NEGATIVE (NEGATIVE); KETONES,URINE NEGATIVE (NEGATIVE); PROTEIN,URINE NEGATIVE (NEGATIVE); URINE SPECIFIC GRAVITY 1.015
[2019-02-15] MEDS ORDERED: DEXAMETHASONE SOD PHOS INJ 10 MG/1 ML VIAL IV ONE (21:12)
--- NOTE | 2019-02-15 21:13 | ER Document Report ---
ED General - General Chief Complaint: Chest Tightness Stated Complaint: CHEST PAIN Time Seen by Provider: 02/15/19 18:16 Mode of Arrival: Ambulatory Notes: Patient is a 28-year-old female that comes emergency department for chief complaint of congestion, cough, chills, body aches, and occasional wheezing. She smokes. She states that she "got sick from work". She does report some discomfort in the middle of the chest intermittently for the past 3 days along with the rest of her symptoms. She denies history of asthma or COPD. She states that she has a history of hyperthyroidism but she is currently taking her medications including methimazole and atenolol. She states she only has 1 week left, her insurance has not kicked in with her new job yet and she is asking for refills as well. She denies medical history otherwise. TRAVEL OUTSIDE OF THE [place] IN LAST 30 DAYS: No - Related Data Allergies/Adverse Reactions: No Known Allergies Allergy (Verified 02/15/19 18:19) Home Medications: atenolol, momethazole Past Medical History - General Information source: Patient - Social History Smoking Status: Current Every Day Smoker Chew tobacco use (# tins/day): No Frequency of alcohol use: None Drug Abuse: None Lives with: Family Family History: Reviewed & Not Pertinent Patient has suicidal ideation: No Patient has homicidal ideation: No - Past Medical History Cardiac Medical History: Reports: Hx Hypertension Endocrine Medical History: Reports: Hx Hyperthyroidism Renal/ Medical History: Denies: Hx Peritoneal Dialysis - Immunizations Immunizations up to date: Yes Hx Diphtheria, Pertussis, Tetanus Vaccination: Yes Review of Systems - Review of Systems Constitutional: No symptoms reported EENT: See HPI Cardiovascular: See HPI Respiratory: See HPI Gastrointestinal: No symptoms reported Genitourinary: No symptoms reported Female Genitourinary: No symptoms reported Musculoskeletal: See HPI Skin: No symptoms reported Hematologic/Lymphatic: No symptoms reported Neurological/Psychological: No symptoms reported Physical Exam - Vital signs Vitals: Temp Pulse Resp BP Pulse Ox 100.0 F 128 H 24 H 142/72 H 100 02/15/19 18:26 02/15/19 18:26 02/15/19 18:26 02/15/19 18:26 02/15/19 18:26 - Notes Notes: GENERAL: Alert, interacts well. No acute distress. HEAD: Normocephalic, atraumatic. EYES: Pupils equal, round, and reactive to light. Extraocular movements intact. ENT: Oral mucosa moist, tongue midline. Very minimal oropharyngeal erythema, no tonsillitis or exudates. Airway patent. Mild sinus congestion, normal sinuses, normal ears/TMs. NECK: Full range of motion. Supple. Trachea midline. Very mild bilateral anterior cervical adenopathy. LUNGS: Clear to auscultation bilaterally, no wheezes, rales, or rhonchi. No res piratory distress. Occasional mild cough. HEART: Regular rate and rhythm. No murmur ABDOMEN: Soft, non-tender. Non-distended. EXTREMITIES: Moves all 4 extremities spontaneously. No edema, normal radial and dorsalis pedis pulses bilaterally. No cyanosis. BACK: no cervical, thoracic, lumbar midline tenderness. No saddle anesthesia, normal distal neurovascular exam. Moves all extremities in full range of motion. NEUROLOGICAL: Alert and oriented x3. Normal speech. Cranial nerves II through XII grossly intact. PSYCH: Normal affect, normal mood. SKIN: Warm, dry, normal turgor. No rashes or lesions noted. Course - Re-evaluation Re-evalutation: Patient well-appearing. She has some congestion, mild erythema the posterior pharynx, mild anterior cervical adenopathy, occasional reported cough, no wheezing. She is not tachycardic on my exam, she is very well-appearing. EKG and troponin reviewed from triage and is elevated as expected and unremarkable. Thyroid panel was ordered in triage as well, patient does state she will be following up closely with insurance but is also requesting additional methimazole and atenolol until she can get the appointment. She was provided with this. She was also provided with dexamethasone here because of her reported wheezing with cough and tobacco abuse. Based on her evaluation Norah wooten she has an upper respiratory viral illness, low suspicion of bacterial infection based on her work-up, very low suspicion of ACS, patient is not tachycardic on my evaluation. Discussed smoking cessation, discussed all work- up at length, discussed follow-up and return precautions. Patient states appreciation and agreement. - Vital Signs Vital signs: Temp Pulse Resp BP Pulse Ox 99.6 F 81 18 135/84 H 97 02/15/19 21:46 02/15/19 21:46 02/15/19 21:46 02/15/19 21:49 02/15/19 21:46 - Laboratory Result Diagrams: 02/15/19 18:51 02/15/19 18:51 Laboratory results interpreted by me: 02/15/19 02/15/19 02/15/19 18:51 18:51 18:51 MCV 79 L MCH 26.1 L RDW 14.9 H Glucose 123 H Lipase 19.9 L TSH 0.02 L Free T4 3.35 H Free T3 pg/mL 10.50 H Urine Urobilinogen Leukocyte Esterase Rfl 02/15/19 18:51 MCV MCH RDW Glucose Lipase TSH Free T4 Free T3 pg/mL Urine Urobilinogen 2.0 H Leukocyte Esterase Rfl SMALL H - EKG Interpretation by Me Additional EKG results interpreted by me: EKG shows sinus tachycardia at a rate of 115, no T wave inversions or ST segment changes in consecutive leads, QTC 448, normal axis. Discharge - Discharge Clinical Impression: Tobacco abuse, Hyperthyroidism, Has run out of medications Upper respiratory infection Qualifiers: URI type: unspecified URI Qualified Code(s): J06.9 - Acute upper respiratory infection, unspecified Condition: Stable Disposition: HOME, SELF-CARE Additional Instructions: Your chest x-ray is negative, your evaluation is consistent with a viral upper respiratory infection. You can take [id number] medications but avoid decongestants because of your hyperthyroidism. Stop smoking. Take your thyroid medications, however it is very important that you follow-up closely with primary care for additional evaluation and management. Call referrals listed below for close follow-up. Come back if you are worse including spiking fevers, difficulty breathing, or any other concerning or worsening symptoms. Prescriptions: Methimazole 10 mg PO TID 30 Days #90 tablet Atenolol [Tenormin] 25 mg PO BID 30 Days #60 tablet Forms: Return to Work
[2019-02-15 21:51] VITALS: BP 135/84
== END 2019-02-15 22:13 | disposition home or self-care (01) ==
LOC: ER 18:05
DX: J06.9 Acute upper respiratory infection, unspecified (principal); R07.89 Other chest pain; E05.90 Thyrotoxicosis, unspecified without thyrotoxic crisis or storm; F17.210 Nicotine dependence, cigarettes, uncomplicated; I10 Essential (primary) hypertension
CPT/HCPCS: 93005; 99285; 96361; 96374; 36415; 87040; 84439; 83690; 84443; 84703; 85025; 87077; 80053; 81001; 84484; 84481; 83605; 87150 ×26; 71046; 93010; J7030; J1100; 87186

== ENCOUNTER 2019-08-29 10:48 | Emergency (ER) | payer SELFPAY ==
[2019-08-29 11:00] VITALS: BP 150/83
--- NOTE | 2019-08-29 11:36 | ER Document Report ---
ED General - General Chief Complaint: Shortness Of Breath Stated Complaint: SHORT OF BREATH,SORE THROAT Time Seen by Provider: 08/29/19 11:00 Notes: 29-year-old female smoker otherwise healthy presents with intermittent sore throat and palpitations since last night. They occur together. It hurts when she swallows when it happens peer this morning she woke up and it was better but then happened again. Currently no sore throat. Intermittent mild shortness of breath with palpitations. No chest pain or pressure. No leg swelling. No COVID exposure. No COVID testing. Denies fever high risk travel, leg swelling hemoptysis history of cancer immobilization or prior thrombosis. TRAVEL OUTSIDE OF THE [place] IN LAST 30 DAYS: No - Related Data Allergies/Adverse Reactions: No Known Allergies Allergy (Verified 02/15/19 18:19) Past Medical History - Social History Smoking Status: Current Every Day Smoker Smoking Education Provided: Yes - The patient ED visit today was directly related to their abuse of tobacco. Family History: Reviewed & Not Pertinent Patient has homicidal ideation: No - Past Medical History Cardiac Medical History: Reports: Hx Hypertension Endocrine Medical History: Reports: Hx Hyperthyroidism Renal/ Medical History: Denies: Hx Peritoneal Dialysis - Immunizations Immunizations up to date: Yes Hx Diphtheria, Pertussis, Tetanus Vaccination: Yes Review of Systems - Review of Systems Notes: REVIEW OF SYSTEMS GEN: Denies fever, chills, weight loss ENT: Throat EYES: Denies blurry vision, eye pain, discharge CV: Patient's RESP: Denies cough, shortness of breath, wheezing GI: Denies abdominal pain, nausea, vomiting, diarrhea MSK: Denies joint pain/swelling, edema, SKIN: Denies rash, skin lesions LYMPH: Denies swollen glands/lymph nodes NEURO: Denies headache, focal weakness or numbness, dizziness PSYCH: Denies depression, suicidal or homicidal ideation PHYSICAL EXAMINATION General: No acute distress, well-nourished Head: Atraumatic, normocephalic ENT: Mouth normal, oropharynx moist, no exudates or tonsillar enlargement Eyes: Conjunctiva normal, pupils equal, lids normal Neck: No JVD, supple, no guarding CVS: Normal rate, regular rhythm, no murmurs Resp: No resp distress, equal and normal breath sounds bilaterally GI: Nondistended, soft, no tenderness to palpation, no rebound or guarding Ext: No deformities, no edema, normal range of motion in upper and lower ext Back: No CVA or midline TTP Skin: No rash, warm Lymphatic: No lymphadeopathy noted Neuro: Awake, alert. Face symmetric. GCS 15. Physical Exam - Vital signs Vitals: Temp Pulse Resp BP Pulse Ox 98.3 F 97 18 150/83 H 100 08/29/19 10:57 08/29/19 10:57 08/29/19 10:57 08/29/19 10:57 08/29/19 10:57 Course - Re-evaluation Re-evalutation: 08/29/19 18:58 Patient presents with intermittent palpitations and sore throat Exam is normal EKG is normal, vitals are normal. Doubt strep. Will test COVID- 19 and discharge for results as outpatient No evidence of ongoing acute cardiac ENT issue I have discussed with the patient there likely diagnosis, aftercare plan, follow-up plans and my usual and customary return precautions. They verbalized understanding of this. - Vital Signs Vital signs: Temp Pulse Resp BP Pulse Ox 98.3 F 97 18 150/83 H 100 08/29/19 11:04 08/29/19 10:57 08/29/19 10:57 08/29/19 10:57 08/29/19 10:57 - Diagnostic Test Radiology reviewed: Image reviewed, Reports reviewed - EKG Interpretation by Me EKG shows normal: Sinus rhythm Rate: Normal Rhythm: NSR - As of arrhythmia or ischemia Discharge - Discharge Clinical Impression: Palpitations, Sore throat Condition: Good Disposition: HOME, SELF-CARE Instructions: Sore Throat ([facility]) Additional Instructions: You have been evaluated for complaints or symptoms which could reflect infection with coronavirus/Covid-19 disease. In the emergency department to test but will take 1-2 days to come back and until you get your results you should assume you are infected. Please stay at home with minimal interaction to others, wash your hands, practice social distancing while at home, and remained at home without any travel outside of the home for: 1. At least 3 days (72 hours) have passed since recovery defined as resolution of fever without the use of fever-reducing medications and improvement in respiratory symptoms (e.g., cough, shortness of breath) AND 2. At least 7 days have passed since symptoms first appeared. Forms: Return to Work
--- NOTE | 2019-08-29 12:16 | RADIOLOGY REPORT (SQ) ---
EXAM DESCRIPTION: CHEST SINGLE VIEW IMAGES COMPLETED DATE/TIME: 08/29/2019 12:03 pm REASON FOR STUDY: sob COMPARISON: PA and lateral views of the chest from 02/15/2019. EXAM PARAMETERS: NUMBER OF VIEWS: One view. TECHNIQUE: An AP view of the chest was obtained. RADIATION DOSE: NA LIMITATIONS: None. FINDINGS: LUNGS AND PLEURA: Low inspiratory lung volumes without a superimposed consolidation, sizea ble pleural effusion or pneumothorax. MEDIASTINUM AND HILAR STRUCTURES: No mediastinal or hilar contour abnormality. HEART AND VASCULAR STRUCTURES: The cardiac silhouette is accentuated due to low inspiratory lung volu mes and AP technique. The pulmonary vasculature is within normal limits. BONES: No acute findings. HARDWARE: None in the chest. OTHER: No other finding. IMPRESSION: Low inspiratory lung volumes without a superimposed acute cardiopulmonary process. TECHNICAL DOCUMENTATION: JOB ID: [id number] 2010 [employer]- All Rights Reserved Reading location - IP/workstation name: [email or web address]
--- NOTE | 2019-08-29 14:59 | EKG REPORT ---
SEVERITY:- NORMAL ECG - SINUS RHYTHM : Confirmed by: Bridget Mcneill MD 29-Aug-2019 14:58:28
== END 2019-08-29 12:54 | disposition home or self-care (01) ==
LOC: ER 10:48
DX: R00.2 Palpitations (principal); J02.9 Acute pharyngitis, unspecified; R06.02 Shortness of breath; F17.200 Nicotine dependence, unspecified, uncomplicated; Z20.828 Contact with and (suspected) exposure to other viral communicable diseases; I10 Essential (primary) hypertension
CPT/HCPCS: 93005; 99285; 87635; 71045; 93010; C9803